=== PATIENT | male | born 1955 ===

== ENCOUNTER 2017-09-10 13:25 | Inpatient (IN) | payer OTHER ==
[~2017-09-10] VITALS: Ht 182.9 cm; Wt 162.1 kg
[2017-09-24] MEDS ORDERED: EPINEPHRINE 1 MG/ML, 1ML ONE (07:02)
[2017-09-24] MEDS ORDERED: BACITRACIN ZINC OINT 500U/GM, 0.9 GM ONE (07:02)
[2017-09-24] MEDS ORDERED: BACITRACIN 50,000 UNIT ONE (07:02)
[2017-09-24] MEDS ORDERED: THROMBIN 5,000 UNIT VIAL TP ONE (07:02)
[2017-09-24] MEDS ORDERED: BUPIVACAINE/PF 0.5% ONE (07:02)
[2017-09-24] MEDS ORDERED: THROMBIN 20,000 UNIT VIAL TP ONE (07:22)
[2017-09-24 13:28] VITALS: BP 135/78
[2017-09-24] MEDS ORDERED: LACTATED RINGERS 1,000 ML IV SCH (13:32)
[2017-09-24] MEDS ORDERED: METF750T2 PO (13:33)
[2017-09-24] MEDS ORDERED: DOCU-131 PO (13:33)
[2017-09-24] MEDS ORDERED: FURO-93 PO (13:33)
[2017-09-24] MEDS ORDERED: ASPI-496 PO (13:33)
[2017-09-24] MEDS ORDERED: CARV6.2512 PO (13:33)
[2017-09-24] MEDS ORDERED: LISI-167 PO (13:33)
[2017-09-24] MEDS ORDERED: MAGN400T26 PO (13:33)
[2017-09-24] MEDS ORDERED: FENO160T12 PO (13:33)
[2017-09-24] MEDS ORDERED: CHOL500050 PO (13:33)
[2017-09-24] MEDS ORDERED: NAPR-685 PO (13:33)
[2017-09-24] MEDS ORDERED: FISH1CAP7 PO (13:33)
[2017-09-24] MEDS ORDERED: POTA10TA12 PO (13:33)
[2017-09-24] MEDS ORDERED: MIDAZOLAM 1 MG/ML, 2ML ONE (13:47)
[2017-09-24] MEDS ORDERED: FENTANYL PF 250 MCG/5ML ONE (13:47)
[2017-09-24] MEDS ORDERED: PROPOFOL 50 ML ONE ×2 (13:57→16:58)
[2017-09-24] MEDS ORDERED: OxyconTIN ER 10 MG TAB.ER ONE (14:29)
[2017-09-24] MEDS ORDERED: FAMOTIDINE 20 MG TABLET ONE (14:29)
[2017-09-24] MEDS ORDERED: ACETAMINOPHEN 500 MG TABLET ONE (14:29)
[2017-09-24] MEDS ORDERED: GABAPENTIN 300 MG CAPSULE ONE (14:30)
[2017-09-24] MEDS ORDERED: ACETAMINOPHEN 500 MG TABLET PO ONE (14:30)
[2017-09-24] MEDS ORDERED: GABAPENTIN 300 MG CAPSULE PO ONE (14:30)
[2017-09-24] MEDS ORDERED: FAMOTIDINE 20 MG TABLET PO ONE (14:30)
[2017-09-24] MEDS ORDERED: OxyconTIN ER 10 MG TAB.ER PO ONE (14:30)
[2017-09-24] MEDS ORDERED: DEXAMETHASONE 4 MG/ML, 1ML ONE (14:43)
[2017-09-24] MEDS ORDERED: LIDOCAINE PF 2%, 5ML ONE (14:43)
[2017-09-24] MEDS ORDERED: SUCCINYLCHOLINE 20 MG/ML, 10ML ONE (14:43)
[2017-09-24] MEDS ORDERED: ROCURONIUM 10 MG/ML,10ML ONE (14:43)
[2017-09-24] MEDS ORDERED: PROMETHAZINE 25 MG/ML, 1ML IV PRN (15:30)
[2017-09-24] MEDS ORDERED: OXYcodone 5 MG/5 ML ORAL.SOL UDC PO PRN (15:30)
[2017-09-24] MEDS ORDERED: LABETALOL 5MG/ML, 20ML IV PRN (15:30)
[2017-09-24] MEDS ORDERED: FENTANYL PF 100 MCG/2ML IV PRN (15:30)
[2017-09-24] MEDS ORDERED: ONDANSETRON 2MG/ML, 2ML IVPush PRN (15:30)
[2017-09-24] MEDS ORDERED: FENTANYL PF 100 MCG/2ML ONE ×2 (16:00→16:51)
[2017-09-24] MEDS ORDERED: CEFAZOLIN 1,000 MG ONE ×10 (17:44)
[2017-09-24] MEDS: morphine SULFATE 10 MG/ML, 1ML IV PRN ×3 (18:55→19:30)
[2017-09-24] MEDS ORDERED: MORPHINE SULFATE 4 MG/ML, 1ML ONE ×2 (18:59→19:30)
[2017-09-24] MEDS ORDERED: LABETALOL 5MG/ML, 20ML ONE (19:05)
[2017-09-24] MEDS: hydrALAzine 20 MG/ML, 1ML IV PRN ×2 (19:15→19:35)
[2017-09-24] MEDS ORDERED: hydrALAzine 20 MG/ML, 1ML ONE (19:17)
[2017-09-24] MEDS ORDERED: METHOCARBAMOL 1,000 MG in DEXTROSE 5% 100 ML IV ONE (19:30)
[2017-09-24] MEDS ORDERED: OXYcodone 5 MG/5 ML ORAL.SOL UDC ONE (19:56)
[2017-09-24] MEDS ORDERED: PHARMACY MAY ADJ FOR RENAL FX MC PRN (20:30)
[2017-09-24] MEDS ORDERED: HYDROcodone/APAP 10/325 MG TABLET PO PRN (21:30)
[2017-09-24] MEDS ORDERED: ACETAMINOPHEN 325 MG TABLET PO PRN (21:30)
[2017-09-24] MEDS ORDERED: DIPHENHYDRAMINE 50 MG CAPSULE PO PRN (21:30)
[2017-09-24] MEDS ORDERED: PROMETHAZINE 25 MG/ML, 1ML IM PRN (21:30)
[2017-09-24] MEDS ORDERED: MAGNESIUM HYDROXIDE 8%, 30ML UDC PO PRN (21:30)
[2017-09-24] MEDS ORDERED: HYDROcodone/APAP 5/325 TABLET PO PRN (21:30)
[2017-09-24] MEDS ORDERED: DIPHENHYDRAMINE 50 MG/ML, 1ML IM PRN (21:30)
[2017-09-24] MEDS ORDERED: ACETAMINOPHEN 650 MG SUPP PR PRN (21:30)
[2017-09-24] MEDS ORDERED: DIPHENHYDRAMINE 50 MG/ML, 1ML IVPush PRN (21:30)
[2017-09-24] MEDS ORDERED: BISACODYL 10 MG SUPP PR PRN (21:30)
[2017-09-24] MEDS ORDERED: morphine SULFATE 10 MG/ML, 1ML IV PRN (21:30)
[2017-09-24] MEDS ORDERED: ONDANSETRON 2MG/ML, 2ML IV PRN (21:30)
[2017-09-24] MEDS: CEFAZOLIN 3,000 MG in SODIUM CHLORIDE 0.9% 100 ML IVPB SCH (22:52)
[2017-09-24] MEDS: NS + 20MEQ KCL 1,000 ML IV SCH (22:52)
[2017-09-25 02:38] VITALS: BP 112/71
[2017-09-25] MEDS: METHOCARBAMOL 750 MG in DEXTROSE 5% 100 ML IV SCH ×3 (04:24→20:11)
[2017-09-25 05:37] LABS: BASOPHILS # (AUTO) 0.01 x10^3/uL (0-0.1); BASOPHILS % (AUTO) 0 % (0-1); EOSINOPHILS % (AUTO) 0 % (1-7); LYMPHOCYTES # (AUTO) 1.25 x10^3/uL (1-3.4); LYMPHOCYTES % (AUTO) 17 % (22-44); MD NO; MEAN CORPUSCULAR HEMOGLOBIN 31.7 pg (27.5-34.5); MEAN CORPUSCULAR HGB CONC 34.6 g/dL (33.2-36.2); MEAN CORPUSCULAR VOLUME 91.5 fL (81-97); MEAN PLATELET VOLUME 7.1 fL (7.4-10.4); MONOCYTES % (AUTO) 9 % (2-9); NEUTROPHILS # (AUTO) 5.44 x10^3/uL (1.8-6.8); NEUTROPHILS % (AUTO) 74 % (42-75); PLATELET COUNT 216 x10^3/uL (130-400); RED BLOOD COUNT 4.31 x10^6/uL (4.38-5.82); RED CELL DISTRIBUTION WIDTH 13.3 % (9.4-14.8)
[2017-09-25 05:47] LABS: ALBUMIN 3.3 g/dL (3.4-5.0); ANION GAP 10 mmol/L (5-15); CALCIUM 8.2 mg/dL (8.5-10.1); CHLORIDE 108 mmol/L (98-107); CREATININE 1.12 mg/dL (0.7-1.3)
[2017-09-25 06:20] VITALS: BP 112/66
[2017-09-25] MEDS: CEFAZOLIN 3,000 MG in SODIUM CHLORIDE 0.9% 100 ML IVPB SCH ×3 (06:21→22:41)
[2017-09-25] MEDS: CARVEDILOL 6.25 MG TABLET PO SCH ×2 (06:21→18:14)
[2017-09-25] MEDS: INSULIN REGULAR 100 UNITS/ML, 3ML VIAL SQ-INSULIN SCH ×4 (07:00→21:00)
[2017-09-25] MEDS: FUROSEMIDE 20 MG TABLET PO SCH ×3 (08:37→09:00)
[2017-09-25] MEDS: FENOFIBRATE 145 MG TABLET PO SCH (08:37)
[2017-09-25] MEDS: SENNA/DOCUSATE TABLET PO SCH (08:37)
[2017-09-25] MEDS: POTASSIUM CHLORIDE 10 MEQ TABLET.ER PO SCH (08:37)
[2017-09-25] MEDS: metFORMIN 500 MG TABLET PO SCH (08:37)
[2017-09-25] MEDS: LISINOPRIL 10 MG TABLET PO SCH (08:40)
[2017-09-25] MEDS: GABAPENTIN 300 MG CAPSULE PO SCH ×3 (09:00→20:11)
[2017-09-25] MEDS: NS + 20MEQ KCL 1,000 ML IV SCH (12:15)
[2017-09-25 14:15] VITALS: BP 129/76
[2017-09-25 19:27] VITALS: BP 147/80
[2017-09-25] MEDS ORDERED: metFORMIN 500 MG TABLET PO SCH (21:00)
[2017-09-26 02:38] VITALS: BP 131/76
[2017-09-26] MEDS: METHOCARBAMOL 750 MG in DEXTROSE 5% 100 ML IV SCH ×2 (03:54→12:42)
[2017-09-26 06:37] LABS: BASOPHILS # (AUTO) 0.03 x10^3/uL (0-0.1); BASOPHILS % (AUTO) 0 % (0-1); EOSINOPHILS # (AUTO) 0.05 x10^3/uL (0-0.4); EOSINOPHILS % (AUTO) 1 % (1-7); LYMPHOCYTES # (AUTO) 2.22 x10^3/uL (1-3.4); LYMPHOCYTES % (AUTO) 26 % (22-44); MD NO; MEAN CORPUSCULAR HGB CONC 33.7 g/dL (33.2-36.2); MEAN CORPUSCULAR VOLUME 91.9 fL (81-97); MEAN PLATELET VOLUME 7.6 fL (7.4-10.4); MONOCYTES # (AUTO) 1.13 x10^3/uL (0.2-0.8); MONOCYTES % (AUTO) 13 % (2-9); NEUTROPHILS # (AUTO) 5.14 x10^3/uL (1.8-6.8); NEUTROPHILS % (AUTO) 60 % (42-75); PLATELET COUNT 203 x10^3/uL (130-400); RED BLOOD COUNT 4.22 x10^6/uL (4.38-5.82); RED CELL DISTRIBUTION WIDTH 13.2 % (9.4-14.8)
[2017-09-26] MEDS: CEFAZOLIN 3,000 MG in SODIUM CHLORIDE 0.9% 100 ML IVPB SCH ×2 (06:43→15:39)
[2017-09-26] MEDS: CARVEDILOL 6.25 MG TABLET PO SCH ×2 (06:43→17:23)
[2017-09-26] MEDS: INSULIN REGULAR 100 UNITS/ML, 3ML VIAL SQ-INSULIN SCH ×3 (07:00→15:42)
[2017-09-26] MEDS: metFORMIN 500 MG TABLET PO SCH (07:53)
[2017-09-26] MEDS: LISINOPRIL 10 MG TABLET PO SCH (07:53)
[2017-09-26] MEDS: SENNA/DOCUSATE TABLET PO SCH (07:53)
[2017-09-26] MEDS: FUROSEMIDE 20 MG TABLET PO SCH (07:53)
[2017-09-26] MEDS: GABAPENTIN 300 MG CAPSULE PO SCH ×2 (07:53→15:39)
[2017-09-26] MEDS: POTASSIUM CHLORIDE 10 MEQ TABLET.ER PO SCH (07:53)
[2017-09-26] MEDS: FENOFIBRATE 145 MG TABLET PO SCH (07:53)
[2017-09-26 07:55] VITALS: BP 136/87
[2017-09-26] MEDS: NS + 20MEQ KCL 1,000 ML IV SCH (10:10)
[2017-09-26] MEDS: DEXAMETHASONE 4 MG/ML, 1ML IV SCH ×2 (10:10→17:23)
[2017-09-26 14:07] VITALS: BP 150/90
[2017-09-26] MEDS ORDERED: CEPH750C9 PO (17:37)
[2017-09-26] MEDS ORDERED: HEPARIN 5,000 UNITS/ML, 1ML SQ SCH (21:00)
[2017-09-27] MEDS ORDERED: METHOCARBAMOL 750 MG TABLET PO SCH (06:00)
[2017-09-27] MEDS ORDERED: CEPHALEXIN 250 MG CAPSULE PO SCH (09:00)
[2017-10-02] MEDS ORDERED: CHOLECALCIFEROL 1,000 UNIT TABLET PO SCH (09:00)
== END 2017-09-26 19:00 | DRG 516 ==
LOC: ORIP 09-24 12:49 → 4NOR 09-24 20:15
PROVIDERS: ADMIT Neurological Surgery; ATTEND Neurological Surgery
PROC: 01NB0ZZ Release Lumbar Nerve, Open Approach (ICD-10-PCS; principal; 2017-09-24 14:30)
DX: M48.061 Spinal stenosis, lumbar region without neurogenic claudication (principal); Z68.42 Body mass index [BMI] 45.0-49.9, adult; E11.65 Type 2 diabetes mellitus with hyperglycemia; E66.9 Obesity, unspecified; Z79.899 Other long term (current) drug therapy
CPT/HCPCS: 36415; 72100; 80048; 82040; 82962; 85025; J0171; J0690; J1100; J2250; J2704; J3010; J3480; J3490; C1781; J0330; J0360; J2270; J2800; J7120